=== PATIENT | female | born 1995 | race Caucasian/White ===

== ENCOUNTER 2017-03-22 16:42 | Emergency (ER) | payer BC ==
[~2017-03-22] VITALS: Ht 175.3 cm; Wt 75.0 kg
[2017-03-22 17:35] LABS: INFLUENZA A NONE DETECTED (NONE DETECT); INFLUENZA B NONE DETECTED (NONE DETECT)
[2017-03-22 18:22] LABS: URINE BILIRUBIN - DIPSTICK NEGATIVE (NEGATIVE); URINE BLOOD DIPSTICK NEGATIVE (NEGATIVE); URINE CLARITY CLEAR; URINE COLOR YELLOW; URINE GLUCOSE - DIPSTICK NEGATIVE (NEGATIVE); URINE KETONE NEGATIVE (NEGATIVE); URINE LEUK ESTERASE NEGATIVE (Negative); URINE NITRITE - DIPSTICK NEGATIVE (Negative); URINE PROTEIN - DIPSTICK NEGATIVE (NEG-TRACE); URINE SPECIFIC GRAVITY 1.025; URINE UROBILINOGEN - DIPSTICK 0.2 E.U./dL (0.2)
[2017-03-22] MEDS ORDERED: ZOFRAN ODT4 MG PO (18:36)
[2017-03-22 18:37] VITALS: BP 136/89
== END 2017-03-22 18:43 | disposition home or self-care (01) | DRG 866 ==
LOC: ED 16:42
PROVIDERS: Emergency Medicine
DX: B34.9 Viral infection, unspecified (principal)

== ENCOUNTER 2019-06-14 00:26 | Emergency (ER) | payer SELFPAY ==
[~2019-06-14] VITALS: Ht 175.3 cm; Wt 68.0 kg
[~2019-06-14 00:26] MED LIST: ZOFRAN ODT4 MG PO
[2019-06-14 00:54] LABS: URINE BILIRUBIN - DIPSTICK NEGATIVE (NEGATIVE); URINE BLOOD DIPSTICK NEGATIVE (NEGATIVE); URINE COLOR YELLOW; URINE GLUCOSE - DIPSTICK NEGATIVE (NEGATIVE); URINE KETONE NEGATIVE (NEGATIVE); URINE LEUK ESTERASE NEGATIVE (NEGATIVE); URINE NITRITE - DIPSTICK NEGATIVE (Negative); URINE PROTEIN - DIPSTICK NEGATIVE (NEG-TRACE); URINE UROBILINOGEN - DIPSTICK 0.2 E.U./dL (0.2)
[2019-06-14] MEDS ORDERED: CEPHALEXIN500 M1 PO (01:55)
[2019-06-14] MEDS ORDERED: ULTRAM50 M1 PO (01:55)
[2019-06-14] MEDS ORDERED: FLONASE AL50 MCG/ACT (01:55)
[2019-06-14 02:13] VITALS: BP 110/72
== END 2019-06-14 02:17 | disposition home or self-care (01) | DRG 914 ==
LOC: ED 00:26
PROVIDERS: Emergency Medicine
DX: S09.92XA Unspecified injury of nose, initial encounter (principal); Y04.2XXA Assault by strike against or bumped into by another person, initial encounter; J32.9 Chronic sinusitis, unspecified